=== PATIENT | female | born 1980 | race Caucasian/White ===

== ENCOUNTER 2017-06-10 01:45 | Emergency (ER) | payer SELFPAY ==
[~2017-06-10] VITALS: Ht 160 cm; Wt 63.0 kg
[2017-06-10 06:02] VITALS: BP 125/81
== END 2017-06-10 08:04 | disposition home or self-care (01) ==
LOC: ER 01:57
DX: I10 Essential (primary) hypertension (principal); M54.6 Pain in thoracic spine; M79.601 Pain in right arm; V89.2XXA Person injured in unspecified motor-vehicle accident, traffic, initial encounter; Y93.89 Activity, other specified; Y92.410 Unspecified street and highway as the place of occurrence of the external cause; Y99.8 Other external cause status
CPT/HCPCS: 72070; 73090; 81025; 99284